=== PATIENT | male | born 1970 | race Two or more races ===

== ENCOUNTER 2017-04-19 10:24 | Observation (INO) | payer SELFPAY ==
[~2017-04-19] VITALS: Ht 167.6 cm; Wt 105.8 kg
--- NOTE | 2017-04-19 11:04 | RAD ---
Portable chest, 04/19/2017: History: Chest pain The heart size and pulmonary vascularity are normal. No pulmonary infiltrates are seen. There is no evidence of pleural fluid. IMPRESSION: No acute cardiopulmonary abnormality is detected.
[2017-04-19 11:05] LABS: BASO % 1 % (0-3); EOS % 1 % (0-3); HEMOGLOBIN 15.1 g/dL (13.0-17.5); LYMPH # 1.9 x10^3/uL (1.0-4.8); LYMPH % 32 % (24-48); MEAN CORPUSCULAR HEMOGLOBIN 29 pg (25-35); MEAN CORPUSCULAR HGB CONC 34 g/dL (31-37); MEAN CORPUSCULAR VOLUME 85 fL (79-100); MONO % 8 % (0-9); NEUT % 58 % (31-73); PLATELET COUNT 195 x10^3/uL (140-400); RED BLOOD COUNT 5.19 x10^6/uL (4.30-5.70); RED CELL DISTRIBUTION WIDTH 14.1 % (11.5-14.5)
[2017-04-19 11:18] LABS: CALCIUM 9.2 mg/dL (8.5-10.1); GFR 80.8; POTASSIUM 4.2 mmol/L (3.5-5.1)
[2017-04-19 11:25] LABS: DIRECT BILIRUBIN 0.2 mg/dL (0.0-0.2); TOTAL BILIRUBIN 0.9 mg/dL (0.2-1.0); TOTAL PROTEIN 7.6 g/dL (6.4-8.2)
[2017-04-19] MEDS ORDERED: ONDANSETRON PF 4 MG/2 ML VIAL. IV PRN (11:45)
[2017-04-19] MEDS ORDERED: MORPHINE SULFATE 2 MG/ML DISP.SYRIN. IV PRN (11:45)
--- NOTE | 2017-04-19 12:20 | PHYS DOC ---
Past Medical History Past Medical History: Diabetes-Type II, High Cholesterol, Hypertension Past Surgical History: No Surgical History Alcohol Use: None Drug Use: None Adult General Chief Complaint Chief Complaint: CHEST PAIN HPI HPI 47-year-old male presenting to the emergency department today with history of chest pain being seen in the clinic locally who was referred here because of concern for previous MD/ACS. The patient currently is feeling well and does not have chest pain. He has had intermittent chest pain over the past week that he describes as a sharp dull achy pain that is nonradiating without alleviating factors. He does have a few risk factors for heart disease. Including type 2 diabetes high cholesterol high blood pressure. Review of systems is negative for fevers chills cough abdominal pain nausea vomiting or diaphoresis. All other review of systems is negative unless otherwise noted in history of present illness. ED course: 47-year-old male presenting to the emergency department today with a history of chest pain and an abnormal EKG sent from clinic. Upon arrival the patient is afebrile with a normal heart rate. He is resting comfortably examination room without diaphoresis. Heart and lungs are normal. Abdomen is soft and nontender. Otherwise unremarkable examination. I reviewed the patient' s previous EKG which does have some Q waves in the inferior leads. This EKG I reviewed was performed on April 19 at 9:32 AM. Otherwise EKG shows sinus rhythm with a regular rate. ST segments congruent. Nonspecific EKG findings. Our EKG here was obtained which shows sinus rhythm with a regular rate. ST segments are congruent. There is T-wave flattening in the inferior leads. The clinic was concerned that he may have had a recent myocardial infarction. His troponin here is negative. I discussed with the family. The patient was then admitted to our hospital for serial cardiac enzymes and cardiac consultation. Review of Systems Review of Systems SEE ABOVE. Current Medications Current Medications Current Medications Medications (Trade) Dose Ordered Sig/Gualberto Start Time Stop Time Status Last Admin Dose Admin Morphine Sulfate 2 mg PRN Q2HR PRN 04/19/17 11:45 04/20/17 11:44 Ondansetron HCl (Zofran) 4 mg PRN Q8HRS PRN 04/19/17 11:45 04/20/17 11:44 Sodium Chloride 1,000 ml @ 80 mls/hr [id number] 04/19/17 11:33 04/20/17 11:32 Allergies Allergies Allergies Coded Allergies Type Severity Reaction Last Updated Verified No Known Drug Allergies 04/19/17 No Physical Exam Physical Exam SEE ABOVE Constitutional: Well developed, well nourished, no acute distress, non-toxic appearance. HENT: Normocephalic, atraumatic, bilateral external ears normal, oropharynx moist, no oral exudates, nose normal. Eyes: PERRLA, EOMI, conjunctiva normal, no discharge. [] Neck: Normal range of motion, no tenderness, supple, no stridor. Cardiovascular:Heart rate regular rhythm, no murmur [] Lungs & Thorax: Bilateral breath sounds clear to auscultation Abdomen: Bowel sounds normal, soft, no tenderness, no masses, no pulsatile masses. Skin: Warm, dry, no erythema, no rash. [] Back: No tenderness, no CVA tenderness. Extremities: No tenderness, no cyanosis, no clubbing, ROM intact, no edema. [] Neurologic: Alert and oriented X 3, normal motor function, normal sensory function, no focal deficits noted. [] Psychologic: Affect normal, judgement normal, mood normal. [] Current Patient Data Vital Signs Vital Signs Date Time Temp Pulse Resp B/P (MAP) Pulse Ox O2 Delivery O2 Flow Rate FiO2 04/19/17 10:38 98.1 57 16 134/83 (100) 100 Room Air 98.1 Lab Values Laboratory Tests Test 04/19/17 10:55 White Blood Count 6.0 x10^3/uL (4.0-11.0) Red Blood Count 5.19 x10^6/uL (4.30-5.70) Hemoglobin 15.1 g/dL (13.0-17.5) Hematocrit 44.0 % (39.0-53.0) Mean Corpuscular Volume 85 fL (79-100) Mean Corpuscular Hemoglobin 29 pg (25-35) Mean Corpuscular Hemoglobin Concent 34 g/dL (31-37) Red Cell Distribution Width 14.1 % (11.5-14.5) Platelet Count 195 x10^3/uL (140-400) Neutrophils (%) (Auto) 58 % (31-73) Lymphocytes (%) (Auto) 32 % (24-48) Monocytes (%) (Auto) 8 % (0-9) Eosinophils (%) (Auto) 1 % (0-3) Basophils (%) (Auto) 1 % (0-3) Neutrophils # (Auto) 3.5 x10^3uL (1.8-7.7) Lymphocytes # (Auto) 1.9 x10^3/uL (1.0-4.8) Monocytes # (Auto) 0.5 x10^3/uL (0.0-1.1) Eosinophils # (Auto) 0.1 x10^3/uL (0.0-0.7) Basophils # (Auto) 0.0 x10^3/uL (0.0-0.2) Sodium Level 139 mmol/L (136-145) Potassium Level 4.2 mmol/L (3.5-5.1) Chloride Level 105 mmol/L (98-107) Carbon Dioxide Level 25 mmol/L (21-32) Anion Gap 9 (6-14) Blood Urea Nitrogen 13 mg/dL (8-26) Creatinine 1.0 mg/dL (0.7-1.3) Estimated GFR (Cockcroft-Gault) 80.8 Glucose Level 104 mg/dL (70-99) H Calcium Level 9.2 mg/dL (8.5-10.1) Total Bilirubin 0.9 mg/dL (0.2-1.0) Direct Bilirubin 0.2 mg/dL (0.0-0.2) Aspartate Amino Transferase (AST) 28 U/L (15-37) Alanine Aminotransferase (ALT) 45 U/L (16-63) Alkaline Phosphatase 78 U/L (46-116) Troponin I Quantitative < 0.017 ng/mL (0.000-0.055) Total Protein 7.6 g/dL (6.4-8.2) Albumin 4.0 g/dL (3.4-5.0) Lipase 112 U/L (73-393) Laboratory Tests 04/19/17 10:55 Laboratory Tests 04/19/17 10:55 EKG EKG [] Radiology/Procedures Radiology/Procedures [] Course & Med Decision Making Course & Med Decision Making Pertinent Labs and Imaging studies reviewed. (See chart for details) [] Dragon Disclaimer Dragon Disclaimer This electronic medical record was generated, in whole or in part, using a voice recognition dictation system. Departure Departure Impression: Primary Impression: Chest pain Additional Impressions: Hypertension High cholesterol Disposition: 09 ADMITTED INPATIENT Admitting Physician: Turner Jackson Condition: STABLE Referrals: NO PCP (PCP) Problem Qualifiers SHARRON KEITA MD Apr 19, 2017 12:20
--- NOTE | 2017-04-19 13:07 | EKG ---
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
[2017-04-19 15:00] VITALS: BP 136/94
[2017-04-19] MEDS: IV NORMAL SALINE 1000ML BAG 1,000 ML IV SCH (15:11)
[2017-04-19] MEDS ORDERED: ASPI-482 PO (15:38)
[2017-04-19] MEDS ORDERED: METF500T4 PO (15:38)
[2017-04-19] MEDS ORDERED: OMEG100021 PO (15:38)
[2017-04-19] MEDS ORDERED: LISI-338 PO (15:38)
[2017-04-19] MEDS ORDERED: ASPIRIN ENTERIC COATED 325 MG TABLET.DR. PO ONE (16:00)
[2017-04-19] MEDS ORDERED: ASA/APAP/CAFFEINE 250/250/65MG TABLET. PO PRN (17:45)
[2017-04-19 19:25] VITALS: BP 125/90
[2017-04-19 23:25] VITALS: BP 117/75
[2017-04-20] MEDS: IV NORMAL SALINE 1000ML BAG 1,000 ML IV SCH (00:03)
[2017-04-20 03:30] VITALS: BP 103/68
[2017-04-20 05:18] LABS: BASO # 0.1 x10^3/uL (0.0-0.2); BASO % 1 % (0-3); EOS % 2 % (0-3); HEMATOCRIT 43.1 % (39.0-53.0); LYMPH # 2.2 x10^3/uL (1.0-4.8); LYMPH % 35 % (24-48); MEAN CORPUSCULAR HEMOGLOBIN 30 pg (25-35); MEAN CORPUSCULAR HGB CONC 35 g/dL (31-37); MEAN CORPUSCULAR VOLUME 85 fL (79-100); MONO % 8 % (0-9); NEUT % 54 % (31-73); PLATELET COUNT 194 x10^3/uL (140-400); RED BLOOD COUNT 5.04 x10^6/uL (4.30-5.70); RED CELL DISTRIBUTION WIDTH 13.6 % (11.5-14.5); WHITE BLOOD COUNT 6.5 x10^3/uL (4.0-11.0)
[2017-04-20 05:38] LABS: CHOLESTEROL/HDL RATIO 4.1
[2017-04-20 05:42] LABS: CALCIUM 8.9 mg/dL (8.5-10.1); CREATININE 0.9 mg/dL (0.7-1.3); GFR 91.3; POTASSIUM 3.7 mmol/L (3.5-5.1)
[2017-04-20 07:20] VITALS: BP 128/84
[2017-04-20] MEDS ORDERED: ASPIRIN ENTERIC COATED 81 MG TABLET.DR. PO SCH (08:00)
--- NOTE | 2017-04-20 10:06 | PDOC2 ---
ZULY MACIAS PIPE AND TEST SUPERVISOR 04/20/17 1006: CARDIAC CONSULT DATE OF CONSULT Date of Consult DATE: 04/20/17 TIME: 09:57 REASON FOR CONSULT Reason for Consult: CP R/O REFERRING PHYSICIAN Referring Physician: Syed SOURCE Source: Caregiver (son), Chart review, Patient HISTORY OF PRESENT ILLNESS HISTORY OF PRESENT ILLNESS This is a pleasant 47 yo mael admitted for complains of CP. Reports that this was sharp and lasting few minutes at a time. He is mainly Uzbek speaking. No reports of nausea, SOA, palpitations and pain is non radiating although this has been going on in the last week. He could not really tell me anything abouut GARCÍA or any exertional CP. His pain is not reproducible and no notable falls or any injury. He does have HTN, HLP, and DM2 and it is unclear if he is truly taking his medications routinely. No prior hx of CAD, VTE, or frequent dizziness or arrhythmia. PAST MEDICAL HISTORY Past Medical History HTN, HLP, DM2 PAST SURGICAL HISTORY Past Surgical History: No pertinent history FAMILY HISTORY Family History noncontributory to CV SOCIAL HISTORY Smoke: No ALCOHOL: occassional Drugs: None Lives: with Family CURRENT MEDICATIONS CURRENT MEDICATIONS Current Medications Medications (Trade) Dose Ordered Sig/Gualberto Route PRN Reason Start Time Stop Time Status Last Admin Dose Admin Sodium Chloride 1,000 ml @ 80 mls/hr [id number] IV 04/19/17 11:33 04/20/17 11:32 04/19/17 15:11 Aspirin (Ecotrin) 325 mg 1X ONCE PO 04/19/17 16:00 04/19/17 16:01 DC 04/19/17 17:17 ALLERGIES ALLERGIES: Coded Allergies: No Known Drug Allergies (Unverified , 04/19/17) ROS Review of System 14 point ROS evaluated with pertinent positives noted per HPI PHYSICAL EXAM General: Alert, Oriented X3, Cooperative, No acute distress HEENT: Atraumatic, Mucous membr. moist/pink Lungs: Clear to auscultation, Normal air movement Heart: Regular rate (SR), Normal S1, Normal S2, No murmurs Abdomen: Soft, No tenderness Extremities: No cyanosis, No edema Skin: No breakdown, No significant lesion Neuro: Normal speech, Sensation intact Psych/Mental Status: Mental status NL, Mood NL MUSCULOSKELETAL: Osteoarthritic changes both hands VITALS VITALS Vital Signs Date Time Temp Pulse Resp B/P (MAP) Pulse Ox O2 Delivery O2 Flow Rate FiO2 04/20/17 07:20 98.1 63 18 128/84 (99) 94 Room Air 98.1 LABS Lab: Laboratory Tests Test 04/19/17 10:55 04/19/17 16:41 04/19/17 17:30 04/19/17 23:20 White Blood Count 6.0 x10^3/uL (4.0-11.0) Red Blood Count 5.19 x10^6/uL (4.30-5.70) Hemoglobin 15.1 g/dL (13.0-17.5) Hematocrit 44.0 % (39.0-53.0) Mean Corpuscular Volume 85 fL (79-100) Mean Corpuscular Hemoglobin 29 pg (25-35) Mean Corpuscular Hemoglobin Concent 34 g/dL (31-37) Red Cell Distribution Width 14.1 % (11.5-14.5) Platelet Count 195 x10^3/uL (140-400) Neutrophils (%) (Auto) 58 % (31-73) Lymphocytes (%) (Auto) 32 % (24-48) Monocytes (%) (Auto) 8 % (0-9) Eosinophils (%) (Auto) 1 % (0-3) Basophils (%) (Auto) 1 % (0-3) Neutrophils # (Auto) 3.5 x10^3uL (1.8-7.7) Lymphocytes # (Auto) 1.9 x10^3/uL (1.0-4.8) Monocytes # (Auto) 0.5 x10^3/uL (0.0-1.1) Eosinophils # (Auto) 0.1 x10^3/uL (0.0-0.7) Basophils # (Auto) 0.0 x10^3/uL (0.0-0.2) Sodium Level 139 mmol/L (136-145) Potassium Level 4.2 mmol/L (3.5-5.1) Chloride Level 105 mmol/L (98-107) Carbon Dioxide Level 25 mmol/L (21-32) Anion Gap 9 (6-14) Blood Urea Nitrogen 13 mg/dL (8-26) Creatinine 1.0 mg/dL (0.7-1.3) Estimated GFR (Cockcroft-Gault) 80.8 Glucose Level 104 mg/dL (70-99) Calcium Level 9.2 mg/dL (8.5-10.1) Total Bilirubin 0.9 mg/dL (0.2-1.0) Direct Bilirubin 0.2 mg/dL (0.0-0.2) Aspartate Amino Transf (AST/SGOT) 28 U/L (15-37) Alanine Aminotransferase (ALT/SGPT) 45 U/L (16-63) Alkaline Phosphatase 78 U/L (46-116) Troponin I Quantitative < 0.017 ng/mL (0.000-0.055) < 0.017 ng/mL (0.000-0.055) < 0.017 ng/mL (0.000-0.055) Total Protein 7.6 g/dL (6.4-8.2) Albumin 4.0 g/dL (3.4-5.0) Lipase 112 U/L (73-393) Glucose (Fingerstick) 105 mg/dL (70-99) Test 04/20/17 03:50 04/20/17 07:24 White Blood Count 6.5 x10^3/uL (4.0-11.0) Red Blood Count 5.04 x10^6/uL (4.30-5.70) Hemoglobin 15.0 g/dL (13.0-17.5) Hematocrit 43.1 % (39.0-53.0) Mean Corpuscular Volume 85 fL (79-100) Mean Corpuscular Hemoglobin 30 pg (25-35) Mean Corpuscular Hemoglobin Concent 35 g/dL (31-37) Red Cell Distribution Width 13.6 % (11.5-14.5) Platelet Count 194 x10^3/uL (140-400) Neutrophils (%) (Auto) 54 % (31-73) Lymphocytes (%) (Auto) 35 % (24-48) Monocytes (%) (Auto) 8 % (0-9) Eosinophils (%) (Auto) 2 % (0-3) Basophils (%) (Auto) 1 % (0-3) Neutrophils # (Auto) 3.5 x10^3uL (1.8-7.7) Lymphocytes # (Auto) 2.2 x10^3/uL (1.0-4.8) Monocytes # (Auto) 0.5 x10^3/uL (0.0-1.1) Eosinophils # (Auto) 0.1 x10^3/uL (0.0-0.7) Basophils # (Auto) 0.1 x10^3/uL (0.0-0.2) Sodium Level 142 mmol/L (136-145) Potassium Level 3.7 mmol/L (3.5-5.1) Chloride Level 105 mmol/L (98-107) Carbon Dioxide Level 25 mmol/L (21-32) Anion Gap 12 (6-14) Blood Urea Nitrogen 13 mg/dL (8-26) Creatinine 0.9 mg/dL (0.7-1.3) Estimated GFR (Cockcroft-Gault) 91.3 Glucose Level 88 mg/dL (70-99) Calcium Level 8.9 mg/dL (8.5-10.1) Triglycerides Level 171 mg/dL (0-150) Cholesterol Level 154 mg/dL (0-200) LDL Cholesterol, Calculated 82 mg/dL (0-100) VLDL Cholesterol, Calculated 34 mg/dL (0-40) Non-HDL Cholesterol Calculated 116 mg/dL (0-129) HDL Cholesterol 38 mg/dL (40-60) Cholesterol/HDL Ratio 4.1 Glucose (Fingerstick) 93 mg/dL (70-99) ASSESSMENT/PLAN ASSESSMENT/PLAN 1. Atypical CP: likely GI 2. DM2 3. HTN: controlled 4. HLP: controlled 5. Obesity Recommendations 1. Lipid panel. MPI today 2. Continue with home regimen including ASA 3. Wt loss Problems: GUERO PRESTON MD 04/20/17 1757: CARDIAC CONSULT ALLERGIES ALLERGIES: Coded Allergies: No Known Drug Allergies (Unverified , 04/19/17) ASSESSMENT/PLAN ASSESSMENT/PLAN Patient seen and examined. Agree with CONDEMNATION ENGINEER's assessment and plan. Chest pain with atypical features. Myocardial infarction was ruled out. Lexiscan nuclear stress test did not show any significant ischemia. Okay for discharge from cardiac standpoint. Thank you for your consultation. Problems: ZULY MACIAS APRN Apr 20, 2017 10:06 GUERO PRESTON MD Apr 20, 2017 17:57
--- NOTE | 2017-04-20 14:43 | HP ---
ADMIT DATE: 04/19/2017 CHIEF COMPLAINT: Chest pain. HISTORY OF PRESENT ILLNESS: The patient is a pleasant, relatively healthy 47-year-old male, who speaks a moderate amount of Romanian. Basically, he presents with chest pain. It is rated at 7/10. It is radiating to the left arm. He tried taking some home meds but that did not work. I have discussed the case with ER physician. We are going to admit the patient and consult Cardiology. He will be given a stress test. PAST MEDICAL HISTORY: Diabetes, hypertension, hyperlipidemia. ALLERGIES: None. FAMILY HISTORY: Diabetes. 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 He does not drink, smoke or take drugs. MEDICATIONS: Reviewed. REVIEW OF SYSTEMS: GENERAL: No history of weight change, weakness or fevers. SKIN: No bruising, hair changes or rashes. EYES: No blurred, double or loss of vision. NOSE AND THROAT: No history of nosebleeds, hoarseness or sore throat. HEART: He complains of chest pain. LUNGS: Denies cough, hemoptysis, wheezing or shortness of breath. GASTROINTESTINAL: Denies changes in appetite, nausea, vomiting, diarrhea or constipation. GENITOURINARY: No history of frequency, urgency, hesitancy or nocturia. NEUROLOGIC: Denies history of numbness, tingling, tremor or weakness. PSYCHIATRIC: No history of panic, anxiety or depression. ENDOCRINE: No history of heat or cold intolerance, polyuria or polydipsia. EXTREMITIES: Denies muscle weakness, joint pain, pain on walking or stiffness. PHYSICAL EXAMINATION: VITAL SIGNS: Temperature afebrile, pulse 90, respirations 16, blood pressure 144/102. GENERAL: He is alert, cooperative. HEART: Normal S1, S2. LUNGS: Clear. ABDOMEN: Soft. EXTREMITIES: No edema. SKIN: No rashes. PSYCHIATRIC: He is depressed. VASCULAR: Good capillary refill. ENDOCRINE: No thyromegaly. LYMPHATICS: No cervical nodes. HEMATOPOIETIC: No bruising. LABORATORY DATA: Troponin is 0. EKG shows sinus rhythm. ASSESSMENT AND PLAN: Chest pain, rule out coronary disease. The patient has been admitted. We will check serial enzymes, serial EKGs, cardiac monitoring, daily aspirin and consult Cardiology. NIAL K. CASTLE, DO DR: ZACHARY/gia JOB#: [id number] / [id number]
--- NOTE | 2017-04-20 14:50 | RAD ---
APPROVED REPORT Test Type: Exercise Stress Nurse/Tech: Della Ardon R.N. Test Indications: chest pain Cardiac History: htn, high chol, dm Medications: see ehr Medical History: see ehr Resting ECG: sr see printout Resting Heart Rate: 82 bpm Resting Blood Pressure: 116/76mmHg Pretest Chest Pain: No chest pain Nurse/Tech Notes lungs cta, heart tones regular Consent: The procedure was explained to the patient in lay terms. Informed consent was witnessed. Geraldo eout was entered into [employer]. History and Stress Test performed by SILVESTRE Padilla, ARRT (R) (N) Stress Symptoms No chest pain or symptoms. POST EXERCISE Reason for Termination: Reached target heart rate Target HR: Yes Max HR: 168 bpm 96% of Maximum Predicted HR: 175 bpm Exercise duration: 7:35 min:sec, 3 Stage Exercise capacity: 10.0METs Max Blood Pressure: 138/90mmHg Blood Pressure response to exercise: Normal blood pressure response during stress. Heart Rate response to exercise: normal Chest Pain: No. Arrhythmia: Yes. pacs ST Change: Yes. noted during exercise, Dr Jc reviewed EKG, possibly old INTERPRETATION Stress EKG Conclusion: Baseline EKG showed sinus rhythm. Non diagnostic changes at peak stress. No arrhythmias. Imaging Protocol IMAGE PROTOCOL: Stress Tc-99m/rest Tc-99m 2 days Rest: Stress: Viability: Radiopharm.Tc99m Sestamibi [id number] Duration 12min. Img Date 04/20/2017 Inj-Img [id number]. Stress Admin Site: IV - Left AntecubitalAdministrator: SILVESTRE Padilla, ARRT (R)(N) STRESS DATA End Diast. Vol.111.0mlAv. Heart Rate81.0bpm End Syst. Vol.35.0mlCO Index BSA0.0L/min Myocardial Pwjx272.0gEject. Bxtzzptl78.0% Stress Rates Pk. Fill Rate2.25EDV/secLVtime Pk. Fill 115.74msec Pk. Empty Rate3.76ESV/secLVtime Pk. Oqxxr091.31msec 06/22 Pk. Fill1.44EDV/sec Stress Scores Regional WT0.00Summed WT0.00 Regional WM0.00Summed WM2.00 LV Perfusion Scintigraphic images did not show any significant perfusion defects. Wall Motion Normal left ventricle systolic function with ejection fraction calculated at 68%. LV Perf. Quant 17 Seg. SSS0.00 Stress Defect Extent (% LAD)0.00Rest Defect Extent (% LAD)Rev. Defect Extent (% LAD)0.00 Stress Defect Extent (% LCX) 0.00Rest Defect Extent (% LCX)Rev. Defect Extent (% LCX)0.00 Stress Defect Extent (% RCA)0.00Rest Defect Extent (% RCA)Rev. Defect Extent (% RCA)0.00 Stress Defect Extent (% ERIKA)0.00Rest Defect Extent (% ERIKA)Rev. Defect Extent (% ERIKA)0.00 Conclusion 1. Treadmill exercise cardioisotope stress test did not show any evidence of ischemia or infarct. 2. Normal left ventricular systolic function with ejection fraction calculated at 68%. 3. Low risk for cardiac events.
[2017-04-20 15:10] VITALS: BP 115/74
== END 2017-04-20 17:19 | disposition home or self-care (01) ==
LOC: ER 10:24 → 6 SOUTH 11:34
PROVIDERS: ADMIT Internal Medicine; ATTEND Internal Medicine
DX: R07.89 Other chest pain (principal); I10 Essential (primary) hypertension; E78.5 Hyperlipidemia, unspecified; E11.9 Type 2 diabetes mellitus without complications; I25.2 Old myocardial infarction
CPT/HCPCS: 36415; 71010; 78452; 80048; 80061; 80076; 82962; 83690; 84484; 85025; 93005; 93017; 96360; 96361; 99285; A9500; G0378; G0379; J7030; 96374